=== PATIENT | male | born 1955 | race Caucasian/White ===

== ENCOUNTER 2019-08-15 22:21 | Inpatient (IN) ==
[2019-08-16] MEDS ORDERED: Naloxone 0.4 MG/ML INJ IVP PRN (00:47)
[2019-08-16] MEDS ORDERED: Dextrose Gel 15 GM/37.5 ML TUBE PO PRN ×2 (00:48)
[2019-08-16] MEDS ORDERED: D5% in Water 1,000 ML IVC PRN (00:48)
[2019-08-16] MEDS ORDERED: *HR* Dextrose 50 % in Water (Syg) 50 ML SYRINGE IVP PRN (00:48)
[2019-08-16] MEDS ORDERED: 0.9 % Sodium Chloride 1,000 ML IVC SCH (01:00)
[2019-08-16 01:43] LABS: Bilirubin,Urine Negative (Negative); Blood,Urine Negative (Negative); Clarity,Urine Clear (Clear); Color,Urine Yellow (Yellow); Glucose,Urine (UA) Normal (Normal); Ketones,Urine Negative (Negative); Leukocyte Esterase,Urine Negative (Negative); Nitrite,Urine Negative (Negative); PH,Urine 5.5 pH Units (5.0-8.0); Protein,Urine Negative (Neg-Trace); Specific Gravity,Urine 1.022 (1.010-1.025); Urobilinogen,Urine Normal (Normal)
[2019-08-16 01:47] LABS: Basophils # 0.1 K/mcL (0.0-0.2); Basophils % 0.7 %; Eosinophils # 0.3 K/mcL (0.0-0.6); Eosinophils % 3.5 %; Hemoglobin 10.3 g/dL (12.9-16.9); Immature Granulocytes % 0.4 % (0-4); Lymphocytes # 3.1 K/mcL (0.6-4.6); Mean Corpuscular HGB Conc 33.2 g/dL (31.6-35.5); Mean Corpuscular Hemoglobin 26.6 pg (28.0-33.3); Mean Corpuscular Volume 80.1 fL (83.0-100.0); Mean Platelet Volume 11.3 fL (9.4-12.4); Monocytes # 0.7 K/mcL (0.0-1.3); Monocytes % 7.3 %; Neutrophils # 4.8 K/mcL (1.6-8.9); Platelet Count 244 K/mcL (140-400); Red Blood Count 3.87 M/mcL (4.19-5.50); Red Cell Distribution Width 13.4 % (11.5-14.5); Segmented Neutrophils % 53.1 %
[2019-08-16 01:52] LABS: INR 1.1
[2019-08-16 02:09] LABS: Alanine Aminotransferase 16 Units/L (7-52); Albumin 3.5 g/dL (3.5-5.7); Albumin/Globulin Ratio 1.5 (1.1-2.2); Alkaline Phosphatase 62 Units/L (34-104); Aspartate Amino Transferase 17 Units/L (13-39); BUN/Creatinine Ratio 17 (6-26); Bilirubin,Total 0.5 mg/dL (0.3-1.0); Blood Urea Nitrogen 20 mg/dL (8-23); Calcium 8.6 mg/dL (8.6-10.3); Carbon Dioxide 26 mEq/L (23-29); Chloride 104 mEq/L (98-107); Globulin 2.3 g/dL (2.4-3.5); Glucose 140 mg/dL (70-105); Lipase 9 Units/L (11-82); Magnesium 1.4 mg/dL (1.6-2.6); Osmolality,Calculated 295 (280-300); Phosphorous 3.3 mg/dL (2.7-4.5); Sodium 140 mEq/L (136-145); Total Protein 5.8 g/dL (6.4-8.9); Troponin I < 0.03 ng/mL (< 0.04); eGFR For African Americans > 60 (> 60); eGFR For Non-African Americans > 60 (> 60)
[2019-08-16 02:23] LABS: Thyroid Stimulating Hormone 4.184 mcIU/mL (0.340-5.600)
[2019-08-16] MEDS: Pantoprazole 40 MG VIAL IVP SCH ×2 (05:19→17:41)
[2019-08-16 07:03] LABS: Hematocrit 30.7 % (37.5-50.1); Hemoglobin 10.1 g/dL (12.9-16.9)
[2019-08-16 08:02] LABS: Estimated Average Glucose 192 mg/dl
[2019-08-16 10:29] LABS: Hematocrit 29.9 % (37.5-50.1); Hemoglobin 9.9 g/dL (12.9-16.9)
[2019-08-16] MEDS: Insulin LISPRO 300 UNITS/3 ML VIAL SQ SCH ×2 (14:34→17:46)
[2019-08-16 16:37] LABS: Hematocrit 30.5 % (37.5-50.1)
[2019-08-16] MEDS ORDERED: SODIUM CHLORIDE/NAHCO3/KCL/PEG 4,000 ML SOLN.RECON PO ONE (17:00)
[2019-08-16] MEDS: traZODone 50 MG TABLET PO SCH (21:49)
[2019-08-16] MEDS: Pregabalin 75 MG CAPSULE PO SCH (21:49)
[2019-08-17] MEDS: Insulin LISPRO 300 UNITS/3 ML VIAL SQ SCH ×4 (00:19→17:16)
[2019-08-17] MEDS: Pantoprazole 40 MG VIAL IVP SCH ×2 (06:23→17:49)
[2019-08-17] MEDS ORDERED: *HR* FentaNYL (PF) 100 MCG/2 ML VIAL ONE (07:15)
[2019-08-17] MEDS ORDERED: *HR* Midazolam HCl 5 MG/5 ML VIAL IVP ONE ×2 (07:16→07:29)
[2019-08-17] MEDS ORDERED: *HR* FentaNYL (PF) 100 MCG/2 ML VIAL IVP ONE (07:29)
[2019-08-17] MEDS ORDERED: Simethicone 40 MG/0.6 ML MLS IR ONE (07:29)
[2019-08-17] MEDS: Pregabalin 75 MG CAPSULE PO SCH ×3 (09:58→20:44)
[2019-08-17] MEDS: lisinopriL 20 MG TABLET PO SCH (09:58)
[2019-08-17] MEDS: Fluticasone Propionate Nasal 50 MCG/SPRAY BOTTLE NS SCH (11:35)
[2019-08-17] MEDS: traZODone 50 MG TABLET PO SCH (20:44)
[2019-08-18] MEDS: Insulin LISPRO 300 UNITS/3 ML VIAL SQ SCH ×2 (02:42→06:09)
[2019-08-18] MEDS: Pantoprazole 40 MG VIAL IVP SCH (06:09)
[2019-08-18 07:10] VITALS: BP 104/63
[2019-08-18] MEDS: Fluticasone Propionate Nasal 50 MCG/SPRAY BOTTLE NS SCH (10:08)
[2019-08-18] MEDS: lisinopriL 20 MG TABLET PO SCH (10:08)
[2019-08-18] MEDS: Pregabalin 75 MG CAPSULE PO SCH ×2 (10:08→10:13)
== END 2019-08-18 10:41 | disposition home or self-care (01) ==
LOC: 3NENU → SUATTDRO 22:22
PROVIDERS: ADMIT Internal Medicine; ATTEND Internal Medicine